=== PATIENT | male | born 1995 | race Caucasian/White ===

== ENCOUNTER → 2018-03-16 | Outpatient (CLI) | payer OTHER ==
[~2018-03-16] MED LIST: BACTRIM DS TAB1 EACH PO; CEPHALEXIN 500500 M3 PO; CLEOCIN HCL300 MG PO; HYDROCODONE-AP1 EAC6 PO; IBUPROFEN 800800 M1 PO; NORCO 5-325 TA1 EACH PO; PAXIL10 MG PO; PERCOCET PO
== END ==
LOC: M.NUC 03-09 09:20
DX: R10.9 Unspecified abdominal pain (principal)